=== PATIENT | male | born 1955 | race Two or more races ===

== ENCOUNTER 2020-11-12 17:16 | Emergency (ER) | payer MEDICARE ==
[~2020-11-12] VITALS: Ht 175.3 cm; Wt 90.7 kg
[2020-11-12] MEDS ORDERED: ONDANSETRON HCL 4 MG/2 ML VIAL IV ONE (17:30)
[2020-11-12] MEDS ORDERED: PANTOPRAZOLE 40 MG/10 ML VIAL INJ IV ONE (17:30)
[2020-11-12] MEDS ORDERED: HYDROmorphone HCL 2 MG/ML VL IV ONE (17:30)
[2020-11-12 18:18] LABS: Basophils # (auto) 0 10 ^3/uL (0-0.2); Basophils % (auto) 0.4 % (0.0-2.0); Eosinophils # (auto) 0.1 10 ^3/uL (0-0.8); Hematocrit 45.7 % (41.0-53.0); Hemoglobin 15.1 g/dL (13.5-17.5); Lymphocytes # (auto) 1.8 10 ^3/uL (0.4-5.4); Mean Corpuscular Hemoglobin 28.2 pg (28.0-32.0); Mean Corpuscular Hgb Conc. 33.1 g/dL (32.0-36.0); Mean Corpuscular Volume 85.2 fL (80.0-100.0); Monocytes % (auto) 7.2 % (0.0-12.0); Neutrophils # (auto) 10.6 10 ^3/uL (1.6-8.6); Neutrophils % (auto) 78.4 % (37.0-80.0); Nucleated Red Blood Cells % 0.1 %; Red Blood Cells 5.36 10^6/uL (4.5-5.90); White Blood Cell 13.5 10^3/uL (4.4-10.8)
[2020-11-12 18:42] LABS: Albumin 4.3 g/dL (3.4-5.0); Amylase 54 U/L (25-115); Calcium 9.7 mg/dL (8.5-10.1); Lipase 112 U/L (73-393); Potassium 3.9 mmol/L (3.5-5.1)
[2020-11-12 18:44] LABS: BUN/Creatinine Ratio 11.3; Bilirubin, Total 0.8 mg/dL (0.2-1.0)
[2020-11-13 07:10] VITALS: BP 131/87
== END 2020-11-13 07:23 | disposition left against medical advice (07) ==
LOC: ER 17:16 → EDBD 17:16 → ER 11-13 07:23
DX: R10.84 Generalized abdominal pain (principal); D72.829 Elevated white blood cell count, unspecified; R11.2 Nausea with vomiting, unspecified; E78.5 Hyperlipidemia, unspecified; N18.6 End stage renal disease; Z88.2 Allergy status to sulfonamides
CPT/HCPCS: 36415; 74176; 80053; 82150; 83690; 85025; 93005; 96374; 96375; 99285; C9113; J1170; J2405